=== PATIENT | female | born 1945 | race Caucasian/White ===

== ENCOUNTER 2017-12-07 08:47 | Day surgery (SDC) | payer OTHER ==
[~2017-12-07] VITALS: Ht 157.5 cm; Wt 59.1 kg
[~2017-12-07 08:47] MED LIST: AMLO10TA4 PO; ASPI-496 PO; ATOR40TA PO; CLON0.1T12 PO; FURO80TA77 PO; HYDR-3342 PO; LEVO75TA5 PO; METO-95 PO; NPH,100V SC; SEVE800T7 PO
[2017-12-07] MEDS ORDERED: LACTATED RINGERS 1,000 ML IV SCH (10:02)
[2017-12-07 10:04] VITALS: BP 166/61
[2017-12-07] MEDS ORDERED: BUPIVACAINE/PF 0.5% ONE (10:44)
[2017-12-07] MEDS ORDERED: LIDOCAINE 1%, 50ML ONE (10:44)
[2017-12-07] MEDS ORDERED: EPINEPHRINE 1 MG/ML, 1ML ONE (10:45)
[2017-12-07] MEDS ORDERED: THROMBIN 20,000 UNIT VIAL TP ONE (10:45)
[2017-12-07] MEDS ORDERED: PAPAVERINE 30 MG/ML, 2ML ONE (10:45)
[2017-12-07] MEDS ORDERED: HEPARIN 1,000 UNITS/ML, 10ML ONE (10:45)
[2017-12-07] MEDS ORDERED: SODIUM CHLORIDE 0.9% 1,000 ML IV SCH (10:55)
[2017-12-07] MEDS ORDERED: MIDAZOLAM 1 MG/ML, 2ML ONE (10:57)
[2017-12-07] MEDS ORDERED: FENTANYL PF 250 MCG/5ML ONE (10:57)
[2017-12-07] MEDS ORDERED: PROPOFOL 10 MG/ML, 20ML ONE (10:58)
[2017-12-07] MEDS ORDERED: ROCURONIUM 10 MG/ML,10ML ONE (10:58)
[2017-12-07] MEDS ORDERED: GLYCOPYRROLATE 0.4 MG/2 ML, 2ML ONE (10:59)
[2017-12-07] MEDS ORDERED: NEOSTIGMINE 1 MG/ML, 10ML ONE (10:59)
[2017-12-07] MEDS ORDERED: CEFAZOLIN 1,000 MG ONE ×2 (10:59)
[2017-12-07] MEDS ORDERED: SODIUM CHLORIDE 0.9% PF 10ML ONE (10:59)
[2017-12-07 11:06] LABS: BASOPHILS # (AUTO) 0.03 x10^3/uL (0-0.1); BASOPHILS % (AUTO) 0 % (0-1); EOSINOPHILS # (AUTO) 0.27 x10^3/uL (0-0.4); EOSINOPHILS % (AUTO) 3 % (1-7); LYMPHOCYTES # (AUTO) 1.82 x10^3/uL (1-3.4); LYMPHOCYTES % (AUTO) 20 % (22-44); MD NO; MEAN CORPUSCULAR HEMOGLOBIN 31.9 pg (27.0-34.8); MEAN CORPUSCULAR VOLUME 93.8 fL (80-100); MEAN PLATELET VOLUME 8.8 fL (7.4-10.4); MONOCYTES # (AUTO) 0.86 x10^3/uL (0.2-0.8); MONOCYTES % (AUTO) 10 % (2-9); NEUTROPHILS # (AUTO) 6.14 x10^3/uL (1.8-6.8); NEUTROPHILS % (AUTO) 67 % (42-75); PLATELET COUNT 304 x10^3/uL (130-400); RED CELL DISTRIBUTION WIDTH 14.1 % (9.6-15.2)
[2017-12-07 11:17] LABS: ALANINE AMINOTRANSFERASE 13 U/L (12-78); ALBUMIN 3.3 g/dL (3.4-5.0); ANION GAP 9 mmol/L (5-15); CALCIUM 8.7 mg/dL (8.5-10.1); CHLORIDE 98 mmol/L (98-107); CREATININE 6.28 mg/dL (0.55-1.02)
[2017-12-07 11:19] LABS: ALKALINE PHOSPHATASE 114 U/L (45-117); BILIRUBIN,TOTAL 0.5 mg/dL (0.2-1.0); TOTAL PROTEIN 7.9 g/dL (6.4-8.2)
[2017-12-07] MEDS ORDERED: PHENYLEPHRINE 10 MG/ML ONE (11:27)
[2017-12-07] MEDS ORDERED: PROMETHAZINE 25 MG/ML, 1ML IV PRN (11:30)
[2017-12-07] MEDS ORDERED: hydrALAzine 20 MG/ML, 1ML IV PRN (11:30)
[2017-12-07] MEDS ORDERED: OXYcodone 5 MG/5 ML ORAL.SOL UDC PO PRN (11:30)
[2017-12-07] MEDS ORDERED: ONDANSETRON 2MG/ML, 2ML IVPush PRN (11:30)
[2017-12-07] MEDS ORDERED: FENTANYL PF 100 MCG/2ML IV PRN (11:30)
[2017-12-07] MEDS ORDERED: HYDROmorphone 1 MG/ML, 1ML IV PRN (11:30)
[2017-12-07] MEDS ORDERED: LABETALOL 5MG/ML, 20ML IV PRN (11:30)
[2017-12-07] MEDS ORDERED: ONDANSETRON 2MG/ML, 2ML ONE (12:33)
[2017-12-07] MEDS ORDERED: PROTAMINE SULFATE 10 MG/ML, 5ML ONE (14:18)
[2017-12-07] MEDS ORDERED: VISIPAQUE 270 MG/ML, 50ML BOTTLE ONE (17:00)
== END 2017-12-07 18:06 ==
LOC: OUT 08:47
DX: T82.898A Other specified complication of vascular prosthetic devices, implants and grafts, initial encounter (principal); E11.22 Type 2 diabetes mellitus with diabetic chronic kidney disease; I12.0 Hypertensive chronic kidney disease with stage 5 chronic kidney disease or end stage renal disease; N18.5 Chronic kidney disease, stage 5; E78.5 Hyperlipidemia, unspecified; E03.9 Hypothyroidism, unspecified; D64.9 Anemia, unspecified; F32.9 Major depressive disorder, single episode, unspecified; Y83.8 Other surgical procedures as the cause of abnormal reaction of the patient, or of later complication, without mention of misadventure at the time of the procedure; Y92.89 Other specified places as the place of occurrence of the external cause; Z98.890 Other specified postprocedural states; Z79.82 Long term (current) use of aspirin; Z86.73 Personal history of transient ischemic attack (TIA), and cerebral infarction without residual deficits; Z88.5 Allergy status to narcotic agent
CPT/HCPCS: 36415; 36819; 75710; 80053; 82962; 85025; 93005; C1760; J0690; J1644; J2250; J2370; J2405; J2440; J2704; J2710; J2720; J3010; J3490; Q9966; J0171

== ENCOUNTER → 2018-05-14 | Outpatient (CLI) | payer OTHER | END | disposition home or self-care (01) | LOC: CFH 07:32 | PROVIDERS: ATTEND Nurse Practitioner Family | DX: N85.8 Other specified noninflammatory disorders of uterus (principal); N95.0 Postmenopausal bleeding; N93.9 Abnormal uterine and vaginal bleeding, unspecified | CPT/HCPCS: 76830 ==

== ENCOUNTER 2018-07-30 11:55 | Day surgery (SDC) | payer OTHER ==
[~2018-07-30] VITALS: Ht 157.5 cm; Wt 54.0 kg
[2018-07-30] MEDS ORDERED: LISI40TA PO (13:18)
[2018-07-30] MEDS ORDERED: ROSU10TA PO (13:18)
[2018-07-30] MEDS ORDERED: FURO80TA3 PO (13:18)
[2018-07-30] MEDS ORDERED: GLIP5TAB10 PO (13:18)
[2018-07-30] MEDS ORDERED: METO-99 PO (13:18)
[2018-07-30 13:26] LABS: BASOPHILS # (AUTO) 0.06 x10^3/uL (0-0.1); BASOPHILS % (AUTO) 1 % (0-1); EOSINOPHILS # (AUTO) 0.11 x10^3/uL (0-0.4); EOSINOPHILS % (AUTO) 2 % (1-7); LYMPHOCYTES # (AUTO) 2.14 x10^3/uL (1-3.4); LYMPHOCYTES % (AUTO) 28 % (22-44); MD NO; MEAN CORPUSCULAR HEMOGLOBIN 30.9 pg (27.0-34.8); MEAN CORPUSCULAR VOLUME 93.6 fL (80-100); MEAN PLATELET VOLUME 8.6 fL (7.4-10.4); MONOCYTES # (AUTO) 0.76 x10^3/uL (0.2-0.8); MONOCYTES % (AUTO) 10 % (2-9); NEUTROPHILS # (AUTO) 4.58 x10^3/uL (1.8-6.8); NEUTROPHILS % (AUTO) 60 % (42-75); PLATELET COUNT 402 x10^3/uL (130-400); RED BLOOD COUNT 3.79 x10^6/uL (3.82-5.3); RED CELL DISTRIBUTION WIDTH 14.1 % (9.6-15.2)
[2018-07-30 13:29] VITALS: BP 188/70
[2018-07-30 13:40] LABS: ANION GAP 9 mmol/L (5-15); CALCIUM 9.7 mg/dL (8.5-10.1); CHLORIDE 98 mmol/L (98-107)
[2018-07-30] MEDS ORDERED: LIDOCAINE-MPF 1%, 5ML ONE (14:06)
[2018-07-30] MEDS ORDERED: DEXTROSE 50%, 50ML SYRINGE ONE (14:27)
[2018-07-30] MEDS ORDERED: DEXTROSE 50%, 50ML SYRINGE IVPush ONE ×2 (14:30)
[2018-07-30] MEDS ORDERED: NALOXONE 1 MG/ML, 2ML ONE (14:42)
[2018-07-30] MEDS ORDERED: PROTAMINE SULFATE 10 MG/ML, 25ML ONE (14:42)
[2018-07-30] MEDS ORDERED: FENTANYL PF 100 MCG/2ML ONE (14:42)
[2018-07-30] MEDS ORDERED: MIDAZOLAM 1 MG/ML, 5ML ONE (14:42)
[2018-07-30] MEDS ORDERED: HEPARIN 1,000 UNITS/ML, 10ML ONE (14:42)
[2018-07-30] MEDS ORDERED: FLUMAZENIL 0.1 MG/1 ML, 5ML ONE (14:42)
[2018-07-30] MEDS ORDERED: VISIPAQUE 270 MG/ML, 50ML BOTTLE ONE (16:20)
[2018-07-30] MEDS ORDERED: AMLODIPINE 5 MG TABLET PO ONE (17:30)
[2018-07-30] MEDS ORDERED: METOPROLOL TARTRATE 100 MG TABLET PO ONE (17:30)
[2018-07-30] MEDS ORDERED: LISINOPRIL 20 MG TABLET PO ONE (17:30)
== END 2018-07-30 18:40 | disposition home or self-care (01) ==
LOC: RAD 11:55
DX: T82.858A Stenosis of other vascular prosthetic devices, implants and grafts, initial encounter (principal); Y83.8 Other surgical procedures as the cause of abnormal reaction of the patient, or of later complication, without mention of misadventure at the time of the procedure; Y92.89 Other specified places as the place of occurrence of the external cause; E11.22 Type 2 diabetes mellitus with diabetic chronic kidney disease; I12.9 Hypertensive chronic kidney disease with stage 1 through stage 4 chronic kidney disease, or unspecified chronic kidney disease; N18.4 Chronic kidney disease, stage 4 (severe); E78.5 Hyperlipidemia, unspecified; F32.9 Major depressive disorder, single episode, unspecified; E03.9 Hypothyroidism, unspecified; D64.9 Anemia, unspecified; Z86.73 Personal history of transient ischemic attack (TIA), and cerebral infarction without residual deficits; Z98.890 Other specified postprocedural states; Z79.82 Long term (current) use of aspirin; Z88.5 Allergy status to narcotic agent
CPT/HCPCS: 36415; 36902; 75710; 76937; 80048; 82962; 85025; 99156; 99157; C1725; C1751; C1769; C1894; J2250; J3010; Q9966; J1644; J2720; J2310

== ENCOUNTER → 2019-01-21 | Outpatient (CLI) | payer OTHER ==
[~2019-01-21] MED LIST changes: +FURO80TA3 PO; +GLIP5TAB10 PO; +LISI40TA PO; +METO-99 PO; +ROSU10TA2 PO
== END | disposition home or self-care (01) ==
LOC: STAR 08:07
PROVIDERS: ATTEND Surgery
DX: Z01.812 Encounter for preprocedural laboratory examination (principal); N18.6 End stage renal disease; I70.213 Atherosclerosis of native arteries of extremities with intermittent claudication, bilateral legs
CPT/HCPCS: 93005

== ENCOUNTER 2019-03-12 19:24 | Inpatient (IN) | payer OTHER ==
[~2019-03-12] VITALS: Ht 157.5 cm; Wt 58.0 kg
--- NOTE | 2019-03-12 19:58 | NUR ---
THIS IS A 73 Y/O FEMALE THAT ARRIVES TO ED WITH INCREASED JORDAN AND HAS STARTED TO HAVE MORE FALLS AT HOME OFTEN. PT REPORTS SHE DOES NOT FEEL WELL AND ITS HARD FOR HER TO GET AROUND. PT HAS NO NEURO DEFICETES AND FSITUALA APPEARS TO BE WITHOUT ISSUE. RIGHT ARM IS SWOLLEN. PT CONNECTED TO ALL MONITORS AND CALL LIGHT IN REACH. AWAITING FURTHER ORDERS.
[2019-03-12 20:10] LABS: BASOPHILS # (AUTO) 0.02 x10^3/uL (0-0.1); BASOPHILS % (AUTO) 0 % (0-1); EOSINOPHILS % (AUTO) 3 % (1-7); LYMPHOCYTES # (AUTO) 1.29 x10^3/uL (1-3.4); LYMPHOCYTES % (AUTO) 20 % (22-44); MD NO; MEAN CORPUSCULAR HEMOGLOBIN 31.8 pg (27.0-34.8); MEAN CORPUSCULAR HGB CONC 33.3 g/dL (32.4-35.8); MEAN CORPUSCULAR VOLUME 95.7 fL (80-100); MEAN PLATELET VOLUME 8.6 fL (7.4-10.4); MONOCYTES % (AUTO) 11 % (2-9); NEUTROPHILS # (AUTO) 4.28 x10^3/uL (1.8-6.8); NEUTROPHILS % (AUTO) 66 % (42-75); PLATELET COUNT 320 x10^3/uL (130-400); RED BLOOD COUNT 3.51 x10^6/uL (3.82-5.3); RED CELL DISTRIBUTION WIDTH 14.5 % (9.6-15.2)
[2019-03-12 20:21] LABS: ANION GAP 8 mmol/L (5-15); CALCIUM 9.2 mg/dL (8.5-10.1); CHLORIDE 97 mmol/L (98-107); CREATININE 2.91 mg/dL (0.55-1.02)
--- NOTE | 2019-03-12 20:28 | NUR ---
MD INFORMED OF INCREASED BP, MD AT THIS TIME WOULD LIKE REPEAT DOSE OF CLONIDINE.
[2019-03-12 20:30] LABS: FREE T4 (FREE THYROXINE) 1.12 ng/dL (0.76-1.46)
[2019-03-12 21:03] LABS: TROPONIN I 0.022 ng/mL (0.000-0.045)
[2019-03-12] MEDS ORDERED: LABETALOL 5 MG/ML SYRINGE IVPush ONE (21:30)
[2019-03-12] MEDS ORDERED: SODIUM CHLORIDE FLUSH 10ML SYR IVF ONE (21:30)
--- NOTE | 2019-03-12 22:07 | NUR ---
SPOKE WITH MD REGARDING HR IN 60-70 RANGE AND IF OKAY TO PROCEEDE WITH BETA SULEMAN IV INSTEAD OF DIFFRENT MEDICATION. MD WOULD LIKE BETA SULEMAN AT THIS TIME.
[2019-03-12] MEDS ORDERED: BISACODYL 10 MG SUPP PR PRN (22:30)
[2019-03-12] MEDS ORDERED: ONDANSETRON ODT 4 MG PO PRN (22:30)
[2019-03-12] MEDS ORDERED: POLYETHYLENE GLYCOL 17 GM PACKET PO PRN (22:30)
[2019-03-12 22:45] VITALS: BP 198/75
[2019-03-12 23:07] LABS: HEMOGLOBIN A1C 8.7 % (4.2-6.3)
[2019-03-12] MEDS ORDERED: hydrALAzine 20 MG/ML, 1ML IV ONE (23:45)
[2019-03-12 23:52] VITALS: BP 193/71
[2019-03-12] MEDS: SEVELAMER CARBONATE 800MG TAB PO SCH (23:54)
[2019-03-12] MEDS: FUROSEMIDE 80 MG TABLET PO SCH (23:54)
[2019-03-12] MEDS: SODIUM CHLORIDE FLUSH 10ML SYR IVF SCH (23:54)
[2019-03-12] MEDS: ATORVASTATIN 40 MG TABLET PO SCH (23:54)
[2019-03-13] MEDS: INSULIN NPH HUMAN 100 UNIT/ML, 3ML VIAL SQ-INSULIN SCH ×2 (01:03→08:40)
[2019-03-13 02:36] VITALS: BP 145/70
[2019-03-13 05:46] LABS: BASOPHILS # (AUTO) 0.02 x10^3/uL (0-0.1); BASOPHILS % (AUTO) 0 % (0-1); EOSINOPHILS # (AUTO) 0.24 x10^3/uL (0-0.4); EOSINOPHILS % (AUTO) 4 % (1-7); LYMPHOCYTES # (AUTO) 1.35 x10^3/uL (1-3.4); LYMPHOCYTES % (AUTO) 23 % (22-44); MD NO; MEAN CORPUSCULAR HEMOGLOBIN 30.9 pg (27.0-34.8); MEAN CORPUSCULAR HGB CONC 32.2 g/dL (32.4-35.8); MEAN CORPUSCULAR VOLUME 96.2 fL (80-100); MEAN PLATELET VOLUME 8.7 fL (7.4-10.4); MONOCYTES # (AUTO) 0.57 x10^3/uL (0.2-0.8); MONOCYTES % (AUTO) 10 % (2-9); NEUTROPHILS # (AUTO) 3.81 x10^3/uL (1.8-6.8); NEUTROPHILS % (AUTO) 64 % (42-75); PLATELET COUNT 291 x10^3/uL (130-400); RED BLOOD COUNT 3.31 x10^6/uL (3.82-5.3); RED CELL DISTRIBUTION WIDTH 14.5 % (9.6-15.2)
[2019-03-13 05:57] LABS: ALBUMIN 3.1 g/dL (3.4-5.0); ANION GAP 9 mmol/L (5-15); CALCIUM 8.6 mg/dL (8.5-10.1); CHLORIDE 96 mmol/L (98-107)
[2019-03-13 05:59] LABS: ALANINE AMINOTRANSFERASE 19 U/L (12-78); ALKALINE PHOSPHATASE 125 U/L (45-117); BILIRUBIN,TOTAL 0.7 mg/dL (0.2-1.0)
[2019-03-13 08:38] VITALS: BP 187/75
[2019-03-13] MEDS: SEVELAMER CARBONATE 800MG TAB PO SCH ×3 (08:39→21:19)
[2019-03-13] MEDS: AMLODIPINE 10 MG TAB PO SCH (08:39)
[2019-03-13] MEDS: METOPROLOL TARTRATE 100 MG TABLET PO SCH (08:40)
[2019-03-13] MEDS: SENNA/DOCUSATE TABLET PO SCH (08:40)
[2019-03-13] MEDS: LISINOPRIL 40 MG TABLET PO SCH ×2 (08:40→21:20)
[2019-03-13] MEDS: FUROSEMIDE 80 MG TABLET PO SCH ×2 (08:40→21:21)
[2019-03-13] MEDS: SODIUM CHLORIDE FLUSH 10ML SYR IVF SCH ×2 (08:41→21:21)
[2019-03-13 08:50] LABS: TROPONIN I 0.044 ng/mL (0.000-0.045)
[2019-03-13] MEDS ORDERED: LEVOTHYROXINE 75 MCG TABLET PO SCH (09:00)
[2019-03-13 10:18] VITALS: BP 137/65
[2019-03-13] MEDS: ACETAMINOPHEN 325 MG TABLET PO PRN (11:21)
[2019-03-13] MEDS: INSULIN LISPRO 100 UNITS/ML, PEN SQ-INSULIN SCH ×3 (11:33→21:23)
[2019-03-13] MEDS ORDERED: HYDR100T25 PO (12:23)
[2019-03-13 13:20] VITALS: BP 134/64
[2019-03-13 20:48] VITALS: BP 139/76
[2019-03-13] MEDS: ATORVASTATIN 40 MG TABLET PO SCH (21:20)
[2019-03-14] VITALS (9 sets, daily range): BP systolic 164–203; BP diastolic 10–81
[2019-03-14 07:41] LABS: ALANINE AMINOTRANSFERASE 17 U/L (12-78); ALBUMIN 3.2 g/dL (3.4-5.0); ANION GAP 11 mmol/L (5-15); CALCIUM 9.1 mg/dL (8.5-10.1); CHLORIDE 97 mmol/L (98-107); CREATININE 5.75 mg/dL (0.55-1.02)
[2019-03-14 07:43] LABS: ALKALINE PHOSPHATASE 112 U/L (45-117); BILIRUBIN,TOTAL 0.5 mg/dL (0.2-1.0); TOTAL PROTEIN 7.3 g/dL (6.4-8.2)
[2019-03-14] MEDS: ACETAMINOPHEN 325 MG TABLET PO PRN ×2 (07:48→21:59)
[2019-03-14] MEDS: INSULIN LISPRO 100 UNITS/ML, PEN SQ-INSULIN SCH ×4 (07:53→22:11)
[2019-03-14] MEDS: SEVELAMER CARBONATE 800MG TAB PO SCH ×3 (09:45→16:27)
[2019-03-14] MEDS ORDERED: ASPI-515 PO (09:55)
[2019-03-14] MEDS ORDERED: INSU100I11 SQ-INSULIN (09:55)
[2019-03-14] MEDS ORDERED: SEVE800T8 PO (09:55)
[2019-03-14] MEDS: SODIUM CHLORIDE FLUSH 10ML SYR IVF SCH ×2 (12:27→21:56)
[2019-03-14] MEDS: AMLODIPINE 10 MG TAB PO SCH (12:28)
[2019-03-14] MEDS: ASPIRIN 81 MG TABLET CHEW PO SCH (12:28)
[2019-03-14] MEDS: LEVOTHYROXINE 75 MCG TABLET PO SCH (12:28)
[2019-03-14] MEDS: LISINOPRIL 40 MG TABLET PO SCH (12:28)
[2019-03-14] MEDS: METOPROLOL TARTRATE 100 MG TABLET PO SCH (12:29)
[2019-03-14] MEDS: SENNA/DOCUSATE TABLET PO SCH (12:29)
[2019-03-14] MEDS: FUROSEMIDE 80 MG TABLET PO SCH ×2 (12:30→21:57)
[2019-03-14] MEDS ORDERED: LABETALOL 5MG/ML, 20ML IVPush PRN (14:00)
[2019-03-14] MEDS ORDERED: LABETALOL 5 MG/ML SYRINGE IVPush PRN (14:37)
[2019-03-14] MEDS: ATORVASTATIN 40 MG TABLET PO SCH (21:56)
[2019-03-15 00:33] VITALS: BP 159/92
[2019-03-15 05:22] VITALS: BP 145/65
[2019-03-15] MEDS: LEVOTHYROXINE 75 MCG TABLET PO SCH (05:24)
[2019-03-15 05:39] LABS: CALCIUM 8.6 mg/dL (8.5-10.1); CHLORIDE 101 mmol/L (98-107)
[2019-03-15 05:47] LABS: ALANINE AMINOTRANSFERASE 17 U/L (12-78); ALKALINE PHOSPHATASE 109 U/L (45-117); ANION GAP 7 mmol/L (5-15); BILIRUBIN,TOTAL 0.4 mg/dL (0.2-1.0); CREATININE 4.38 mg/dL (0.55-1.02); TOTAL PROTEIN 6.9 g/dL (6.4-8.2)
[2019-03-15] MEDS ORDERED: DEXTROSE 4 GM TAB.CHEW PO PRN (07:30)
[2019-03-15] MEDS ORDERED: GLUCAGON 1 MG IM PRN (07:30)
[2019-03-15] MEDS ORDERED: DEXTROSE 50%, 50ML SYRINGE IVPush PRN (07:30)
[2019-03-15 07:38] VITALS: BP 169/61
[2019-03-15] MEDS ORDERED: LISI-170 PO (08:05)
[2019-03-15] MEDS: AMLODIPINE 10 MG TAB PO SCH (08:41)
[2019-03-15] MEDS: SODIUM CHLORIDE FLUSH 10ML SYR IVF SCH ×3 (08:41→09:00)
[2019-03-15] MEDS: METOPROLOL TARTRATE 100 MG TABLET PO SCH (08:41)
[2019-03-15] MEDS: INSULIN LISPRO 100 UNITS/ML, PEN SQ-INSULIN SCH (08:41)
[2019-03-15] MEDS: ASPIRIN 81 MG TABLET CHEW PO SCH (08:41)
[2019-03-15] MEDS: FUROSEMIDE 80 MG TABLET PO SCH (08:41)
[2019-03-15] MEDS: SEVELAMER CARBONATE 800MG TAB PO SCH (08:41)
[2019-03-15] MEDS: SENNA/DOCUSATE TABLET PO SCH (08:42)
== END 2019-03-15 10:25 | disposition home or self-care (01) | DRG 304 ==
LOC: ED 20:34 → EDIP 21:49 → 5SO 22:52 → 4EST 03-14 22:54 → DCLOUNGE 03-15 10:05
PROVIDERS: ADMIT Family Medicine; ATTEND Family Medicine
DX: I16.0 Hypertensive urgency (principal); N18.6 End stage renal disease; E44.0 Moderate protein-calorie malnutrition; E87.3 Alkalosis; I87.1 Compression of vein; I69.354 Hemiplegia and hemiparesis following cerebral infarction affecting left non-dominant side; I12.0 Hypertensive chronic kidney disease with stage 5 chronic kidney disease or end stage renal disease; D63.1 Anemia in chronic kidney disease; E03.9 Hypothyroidism, unspecified; E11.22 Type 2 diabetes mellitus with diabetic chronic kidney disease; E11.41 Type 2 diabetes mellitus with diabetic mononeuropathy; E11.65 Type 2 diabetes mellitus with hyperglycemia; Z68.23 Body mass index [BMI] 23.0-23.9, adult; E78.5 Hyperlipidemia, unspecified; Z88.6 Allergy status to analgesic agent; H91.90 Unspecified hearing loss, unspecified ear; N25.0 Renal osteodystrophy; R62.7 Adult failure to thrive; W18.39XA Other fall on same level, initial encounter; Y93.89 Activity, other specified; Y92.89 Other specified places as the place of occurrence of the external cause; Y99.8 Other external cause status; G57.90 Unspecified mononeuropathy of unspecified lower limb; Z82.49 Family history of ischemic heart disease and other diseases of the circulatory system; Z83.3 Family history of diabetes mellitus; Z91.14 Patient's other noncompliance with medication regimen; Z99.2 Dependence on renal dialysis
CPT/HCPCS: 36415; 70450; 71045; 80048; 80053; 82306; 82962; 83036; 83970; 84100; 84439; 84443; 84484; 85025; 86705; 86706; 87340; 93005; 96374; G0378; J1815; J0360

== ENCOUNTER 2019-03-17 16:33 | Inpatient (IN) | payer OTHER ==
[~2019-03-17] VITALS: Ht 157.5 cm; Wt 63.0 kg
[~2019-03-17 16:33] MED LIST changes: +ASPI-515 PO; +HYDR100T25 PO; +INSU100I11 SQ-INSULIN; +LISI-170 PO; +SEVE800T8 PO
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
--- NOTE | 2019-03-17 16:53 | NUR ---
[facility] UPON ASSESSMENT BY ERMD PT STRIGHT TO CT.
[2019-03-17] MEDS ORDERED: LISI40TA PO (17:18)
[2019-03-17 17:29] LABS: BASOPHILS # (AUTO) 0.05 x10^3/uL (0-0.1); BASOPHILS % (AUTO) 1 % (0-1); EOSINOPHILS # (AUTO) 0.22 x10^3/uL (0-0.4); EOSINOPHILS % (AUTO) 3 % (1-7); LYMPHOCYTES # (AUTO) 1.12 x10^3/uL (1-3.4); LYMPHOCYTES % (AUTO) 16 % (22-44); MD NO; MEAN CORPUSCULAR HEMOGLOBIN 31.4 pg (27.0-34.8); MEAN CORPUSCULAR HGB CONC 32.8 g/dL (32.4-35.8); MEAN CORPUSCULAR VOLUME 95.7 fL (80-100); MONOCYTES % (AUTO) 9 % (2-9); NEUTROPHILS % (AUTO) 72 % (42-75); PLATELET COUNT 287 x10^3/uL (130-400); RED BLOOD COUNT 3.06 x10^6/uL (3.82-5.3); RED CELL DISTRIBUTION WIDTH 15.1 % (9.6-15.2)
[2019-03-17 17:39] LABS: INTERNATIONAL NORMALIZED RATIO 0.96 (0.93-1.1); PROTHROMBIN TIME 10.1 Seconds (9.6-11.5)
[2019-03-17 17:40] LABS: ALANINE AMINOTRANSFERASE 16 U/L (12-78); ALBUMIN 3.2 g/dL (3.4-5.0); ANION GAP 10 mmol/L (5-15); CALCIUM 8.5 mg/dL (8.5-10.1); CHLORIDE 97 mmol/L (98-107)
--- NOTE | 2019-03-17 17:42 | NUR ---
PICC LINE PLACED
[2019-03-17 17:43] LABS: ALKALINE PHOSPHATASE 121 U/L (45-117); BILIRUBIN,TOTAL 0.4 mg/dL (0.2-1.0); CREATININE 4.38 mg/dL (0.55-1.02); TOTAL PROTEIN 7.1 g/dL (6.4-8.2)
--- NOTE | 2019-03-17 17:45 | NUR ---
TELE NEUROLOGIST CONSULT OCCURING
[2019-03-17] MEDS ORDERED: ALTEPLASE 1 MG/ML ONE (17:56)
[2019-03-17] MEDS ORDERED: ALTEPLASE 5 MG in SYRINGE 1 EA IVPush ONE (18:00)
[2019-03-17] MEDS ORDERED: ALTEPLASE IV ONE (18:00)
--- NOTE | 2019-03-17 18:20 | NUR ---
MT TO CONTACT TELE NEURO REGARDING POSSIBLE TPA. ERMD WOULD LIKE NEUROLOGIST TO SPEAK WITH FAMILY REGARDING TPA.
--- NOTE | 2019-03-17 18:42 | NUR ---
MT CURRENTLY ONHOLD ATTEMPTING TO CONTACT NEUROLOGIST
--- NOTE | 2019-03-17 19:05 | NUR ---
THROUGHT MADE AWARE OF TELE NEURO DOCTOR WANTING PT TO BE TRANSFERED TO A HOSPITAL WITH CLOT RETRIVAL. ERMD AWARE.
--- NOTE | 2019-03-17 19:05 | NUR ---
NARDA SPOKE WITH TELE NEURO MD REGARDING CONCERNS OF STARTING TPA. TELE NEUROLOGIST TO SPEAK WITH FAMILY.
--- NOTE | 2019-03-17 19:15 | NUR ---
FAMILY WITH IN DEPTH CONVERSTAION WITH TELE NEURO DOCTOR. DISCUSSED RISK AND BENEFITS WITH FAMILY. FAMILY AGREES WITH GIVING TPA. TPA DOSEAGE VERIFIED WITH DEION SLOAN. TPA STARTED.
--- NOTE | 2019-03-17 19:25 | NUR ---
ERMD AWARE ABOUT PT'S BP. NO ORDERS AT THIS TIME.
--- NOTE | 2019-03-17 19:32 | NUR ---
PT TO CT FOR CTA. DR. HAYDEN AT [facility] TO REVIEW CTA PRIOR TO ACCEPTING.
--- NOTE | 2019-03-17 20:10 | NUR ---
ERMD AT BEDSIDE TO DISCUSS UPDATED POC. PT TO BE ADMITED HERE.
[2019-03-17] MEDS ORDERED: SODIUM CHLORIDE FLUSH 10ML SYR IVF PRN (20:30)
[2019-03-17] MEDS ORDERED: hydrALAzine 20 MG/ML, 1ML IV ONE (20:30)
--- NOTE | 2019-03-17 20:41 | NUR ---
HYDRALIZINE HELD AT THIS TIME BP HAS DECREASED.
[2019-03-17] MEDS ORDERED: ONDANSETRON 2MG/ML, 2ML IVPush PRN (21:00)
[2019-03-17] MEDS ORDERED: GLUCAGON 1 MG IM PRN (21:00)
[2019-03-17] MEDS ORDERED: DEXTROSE 4 GM TAB.CHEW PO PRN (21:00)
[2019-03-17] MEDS ORDERED: DEXTROSE 50%, 50ML SYRINGE IVPush PRN (21:00)
--- NOTE | 2019-03-17 21:20 | NUR ---
REPORT TO DEION AREVALO.
[2019-03-17] MEDS ORDERED: LABETALOL 5MG/ML, 20ML IV PRN (21:30)
--- NOTE | 2019-03-17 21:30 | NUR ---
PT TO ICU-3. PLEASE SEE TPA FLOW SHEET FOR VITALS POST STARTING TPA.
[2019-03-17 22:13] VITALS: BP 170/50
[2019-03-17] MEDS: SODIUM CHLORIDE FLUSH 10ML SYR IVF SCH (23:34)
[2019-03-17] MEDS: INSULIN LISPRO 100 UNITS/ML, PEN SQ-INSULIN SCH (23:34)
[2019-03-18 04:00] VITALS: BP 139/44
[2019-03-18] MEDS: INSULIN LISPRO 100 UNITS/ML, PEN SQ-INSULIN SCH ×4 (07:50→21:00)
[2019-03-18] MEDS: SODIUM CHLORIDE FLUSH 10ML SYR IVF SCH ×2 (09:00→21:00)
[2019-03-18] MEDS: D5%-0.9% NACL 1,000 ML IV SCH (09:30)
[2019-03-18] MEDS: ENALAPRILAT 1.25 MG/ML, 2ML IV PRN (13:49)
--- NOTE | 2019-03-18 15:23 | NUR ---
NPO -aggressive oral care Addendum: 03/18/19 at [address] Amended: Links added.
[2019-03-18 18:41] LABS: CHOL/HDL RATIO 1.9; LDL/HDL RATIO 0.6 (0.5-3.0)
[2019-03-18 23:21] VITALS: BP 168/80
[2019-03-19] VITALS (7 sets, daily range): BP systolic 169–200; BP diastolic 81–99
[2019-03-19] MEDS: INSULIN LISPRO 100 UNITS/ML, PEN SQ-INSULIN SCH ×4 (03:16→21:47)
[2019-03-19] MEDS: D5%-0.9% NACL 1,000 ML IV SCH (05:58)
[2019-03-19] MEDS ORDERED: ENALAPRILAT 1.25 MG/ML, 1ML ONE (08:18)
[2019-03-19] MEDS: ENALAPRILAT 1.25 MG/ML, 2ML IV PRN ×2 (08:24→21:54)
[2019-03-19] MEDS: SODIUM CHLORIDE FLUSH 10ML SYR IVF SCH ×2 (09:00→21:47)
[2019-03-19] MEDS: ASPIRIN 300 MG SUPP PR SCH (11:40)
[2019-03-20] VITALS (8 sets, daily range): BP systolic 168–199; BP diastolic 68–93
[2019-03-20] MEDS: D5%-0.9% NACL 1,000 ML IV SCH (03:15)
[2019-03-20] MEDS: INSULIN LISPRO 100 UNITS/ML, PEN SQ-INSULIN SCH ×4 (03:22→21:33)
[2019-03-20 06:16] LABS: ANION GAP 11 mmol/L (5-15); CALCIUM 9.3 mg/dL (8.5-10.1); CHLORIDE 102 mmol/L (98-107); CREATININE 5.06 mg/dL (0.55-1.02)
[2019-03-20 06:44] LABS: BASOPHILS # (AUTO) 0.03 x10^3/uL (0-0.1); BASOPHILS % (AUTO) 0 % (0-1); EOSINOPHILS # (AUTO) 0.03 x10^3/uL (0-0.4); EOSINOPHILS % (AUTO) 0 % (1-7); LYMPHOCYTES # (AUTO) 1.12 x10^3/uL (1-3.4); LYMPHOCYTES % (AUTO) 12 % (22-44); MD NO; MEAN CORPUSCULAR HEMOGLOBIN 31.1 pg (27.0-34.8); MEAN CORPUSCULAR HGB CONC 32.6 g/dL (32.4-35.8); MEAN CORPUSCULAR VOLUME 95.2 fL (80-100); MEAN PLATELET VOLUME 8.8 fL (7.4-10.4); MONOCYTES % (AUTO) 11 % (2-9); NEUTROPHILS % (AUTO) 77 % (42-75); PLATELET COUNT 299 x10^3/uL (130-400); RED CELL DISTRIBUTION WIDTH 14.8 % (9.6-15.2)
[2019-03-20] MEDS: SODIUM CHLORIDE FLUSH 10ML SYR IVF SCH ×2 (09:00→21:00)
[2019-03-20] MEDS: ASPIRIN 300 MG SUPP PR SCH (09:49)
[2019-03-20] MEDS: METOPROLOL 1 MG/ML, 5ML IVPush SCH ×2 (13:11→19:49)
[2019-03-20] MEDS: LISINOPRIL 40 MG TABLET NG SCH (15:59)
[2019-03-20] MEDS ORDERED: LISINOPRIL 40 MG TABLET NG SCH (21:00)
[2019-03-20] MEDS: ATORVASTATIN 80 MG TABLET PO/NG SCH (21:27)
[2019-03-21 01:26] VITALS: BP 154/83
[2019-03-21] MEDS: METOPROLOL 1 MG/ML, 5ML IVPush SCH ×3 (02:05→14:54)
[2019-03-21] MEDS: INSULIN LISPRO 100 UNITS/ML, PEN SQ-INSULIN SCH ×4 (02:05→21:57)
[2019-03-21 04:36] VITALS: BP 165/77
[2019-03-21 09:15] VITALS: BP 192/83
[2019-03-21 14:35] VITALS: BP 186/85
[2019-03-21] MEDS: CLOPIDOGREL 75 MG TABLET PO/NG SCH (14:54)
[2019-03-21] MEDS: LISINOPRIL 40 MG TABLET NG SCH (14:55)
[2019-03-21] MEDS: AMLODIPINE 10 MG TAB PO/NG SCH (14:55)
[2019-03-21] MEDS: LEVOTHYROXINE 75 MCG TABLET PO/NG SCH (14:56)
[2019-03-21] MEDS: SODIUM CHLORIDE FLUSH 10ML SYR IVF SCH ×2 (14:57→21:00)
[2019-03-21] MEDS: ASPIRIN 300 MG SUPP PR SCH (15:00)
[2019-03-21] MEDS: METOPROLOL TARTRATE 25 MG TABLET PO/NG SCH (18:35)
[2019-03-21 21:00] VITALS: BP 146/65
[2019-03-21] MEDS: ATORVASTATIN 80 MG TABLET PO/NG SCH (21:55)
[2019-03-21] MEDS: INSULIN GLARGINE 100 UNITS/ML, PEN SQ-INSULIN SCH (22:32)
[2019-03-22] VITALS (8 sets, daily range): BP systolic 115–180; BP diastolic 62–79
[2019-03-22] MEDS: INSULIN LISPRO 100 UNITS/ML, PEN SQ-INSULIN SCH ×4 (03:00→21:00)
[2019-03-22] MEDS: METOPROLOL TARTRATE 25 MG TABLET PO/NG SCH ×3 (03:38→19:00)
[2019-03-22 04:20] LABS: BASOPHILS # (AUTO) 0.01 x10^3/uL (0-0.1); BASOPHILS % (AUTO) 0 % (0-1); EOSINOPHILS % (AUTO) 2 % (1-7); LYMPHOCYTES % (AUTO) 11 % (22-44); MD NO; MEAN CORPUSCULAR HEMOGLOBIN 30.9 pg (27.0-34.8); MEAN CORPUSCULAR HGB CONC 31.6 g/dL (32.4-35.8); MEAN CORPUSCULAR VOLUME 97.8 fL (80-100); MONOCYTES # (AUTO) 0.67 x10^3/uL (0.2-0.8); MONOCYTES % (AUTO) 8 % (2-9); NEUTROPHILS # (AUTO) 6.63 x10^3/uL (1.8-6.8); NEUTROPHILS % (AUTO) 79 % (42-75); PLATELET COUNT 279 x10^3/uL (130-400); RED BLOOD COUNT 2.56 x10^6/uL (3.82-5.3); RED CELL DISTRIBUTION WIDTH 14.8 % (9.6-15.2)
[2019-03-22 04:32] LABS: CHLORIDE 101 mmol/L (98-107)
[2019-03-22 04:39] LABS: ALANINE AMINOTRANSFERASE 13 U/L (12-78); ALBUMIN 2.3 g/dL (3.4-5.0); ALKALINE PHOSPHATASE 120 U/L (45-117); ANION GAP 6 mmol/L (5-15); BILIRUBIN,TOTAL 0.4 mg/dL (0.2-1.0); CALCIUM 8.1 mg/dL (8.5-10.1); CREATININE 4.35 mg/dL (0.55-1.02); TOTAL PROTEIN 5.8 g/dL (6.4-8.2)
[2019-03-22] MEDS: SODIUM CHLORIDE FLUSH 10ML SYR IVF SCH ×2 (09:00→21:39)
[2019-03-22] MEDS: LISINOPRIL 40 MG TABLET NG SCH (09:34)
[2019-03-22] MEDS: AMLODIPINE 10 MG TAB PO/NG SCH (09:34)
[2019-03-22] MEDS: LEVOTHYROXINE 75 MCG TABLET PO/NG SCH (09:37)
[2019-03-22] MEDS: CLOPIDOGREL 75 MG TABLET PO/NG SCH (09:37)
[2019-03-22] MEDS: INSULIN GLARGINE 100 UNITS/ML, PEN SQ-INSULIN SCH ×2 (09:47→21:00)
--- NOTE | 2019-03-22 14:24 | NUR ---
REC: Pureed/NTL; swallow precautions posted in room. Addendum: 03/22/19 at 1425 by Frannie VILLAGRAN Amended: Links added.
[2019-03-22] MEDS: METOPROLOL TARTRATE 50 MG TABLET PO/NG SCH (21:00)
[2019-03-22] MEDS: ATORVASTATIN 80 MG TABLET PO/NG SCH (21:38)
[2019-03-23 00:30] VITALS: BP 144/64
[2019-03-23] MEDS: INSULIN LISPRO 100 UNITS/ML, PEN SQ-INSULIN SCH ×4 (03:47→22:15)
[2019-03-23 04:00] VITALS: BP 141/56
[2019-03-23 07:55] VITALS: BP 188/72
[2019-03-23] MEDS: CLOPIDOGREL 75 MG TABLET PO/NG SCH (08:27)
[2019-03-23] MEDS: METOPROLOL TARTRATE 50 MG TABLET PO/NG SCH ×2 (08:27→22:14)
[2019-03-23] MEDS: AMLODIPINE 10 MG TAB PO/NG SCH (08:28)
[2019-03-23] MEDS: LISINOPRIL 40 MG TABLET NG SCH (08:28)
[2019-03-23] MEDS: SODIUM CHLORIDE FLUSH 10ML SYR IVF SCH ×2 (08:28→22:13)
[2019-03-23] MEDS: LEVOTHYROXINE 75 MCG TABLET PO/NG SCH (08:28)
[2019-03-23] MEDS: INSULIN GLARGINE 100 UNITS/ML, PEN SQ-INSULIN SCH ×2 (08:30→22:15)
[2019-03-23 10:23] VITALS: BP 147/73
[2019-03-23] MEDS ORDERED: HYDROCHLOROTHIAZIDE 25 MG TABLET ONE (10:32)
[2019-03-23] MEDS: HYDROCHLOROTHIAZIDE 25 MG TABLET NG SCH (10:36)
[2019-03-23 14:09] VITALS: BP 162/65
[2019-03-23 21:41] VITALS: BP 155/56
[2019-03-23] MEDS: ATORVASTATIN 80 MG TABLET PO/NG SCH (22:14)
[2019-03-24] VITALS (7 sets, daily range): BP systolic 135–181; BP diastolic 60–73
[2019-03-24] MEDS: INSULIN LISPRO 100 UNITS/ML, PEN SQ-INSULIN SCH ×4 (03:18→21:14)
[2019-03-24 06:36] LABS: BASOPHILS # (AUTO) 0.05 x10^3/uL (0-0.1); BASOPHILS % (AUTO) 1 % (0-1); EOSINOPHILS # (AUTO) 0.32 x10^3/uL (0-0.4); EOSINOPHILS % (AUTO) 5 % (1-7); LYMPHOCYTES # (AUTO) 1.02 x10^3/uL (1-3.4); LYMPHOCYTES % (AUTO) 15 % (22-44); MD NO; MEAN CORPUSCULAR HGB CONC 33.1 g/dL (32.4-35.8); MEAN CORPUSCULAR VOLUME 96.6 fL (80-100); MEAN PLATELET VOLUME 9.2 fL (7.4-10.4); MONOCYTES # (AUTO) 0.58 x10^3/uL (0.2-0.8); MONOCYTES % (AUTO) 9 % (2-9); NEUTROPHILS # (AUTO) 4.77 x10^3/uL (1.8-6.8); NEUTROPHILS % (AUTO) 71 % (42-75); PLATELET COUNT 308 x10^3/uL (130-400); RED BLOOD COUNT 2.62 x10^6/uL (3.82-5.3); RED CELL DISTRIBUTION WIDTH 14.7 % (9.6-15.2)
[2019-03-24 06:47] LABS: ANION GAP 9 mmol/L (5-15); CALCIUM 8.4 mg/dL (8.5-10.1); CHLORIDE 97 mmol/L (98-107)
[2019-03-24 06:48] LABS: CREATININE 7.17 mg/dL (0.55-1.02)
[2019-03-24] MEDS: HYDROCHLOROTHIAZIDE 25 MG TABLET NG SCH (09:00)
[2019-03-24] MEDS: CLOPIDOGREL 75 MG TABLET PO/NG SCH (09:00)
[2019-03-24] MEDS: SODIUM CHLORIDE FLUSH 10ML SYR IVF SCH ×2 (09:00→21:15)
[2019-03-24] MEDS: INSULIN GLARGINE 100 UNITS/ML, PEN SQ-INSULIN SCH ×2 (09:59→21:15)
[2019-03-24] MEDS: LEVOTHYROXINE 75 MCG TABLET PO/NG SCH (09:59)
[2019-03-24] MEDS: AMLODIPINE 10 MG TAB PO/NG SCH (11:56)
[2019-03-24] MEDS: LISINOPRIL 40 MG TABLET NG SCH (11:56)
[2019-03-24] MEDS: METOPROLOL TARTRATE 50 MG TABLET PO/NG SCH ×2 (11:58→21:14)
[2019-03-24] MEDS: ATORVASTATIN 80 MG TABLET PO/NG SCH (21:13)
[2019-03-25] MEDS: INSULIN LISPRO 100 UNITS/ML, PEN SQ-INSULIN SCH ×4 (03:05→21:38)
[2019-03-25 04:10] VITALS: BP 146/70
[2019-03-25 07:44] LABS: BASOPHILS % (AUTO) 0 % (0-1); EOSINOPHILS # (AUTO) 0.27 x10^3/uL (0-0.4); EOSINOPHILS % (AUTO) 4 % (1-7); LYMPHOCYTES # (AUTO) 0.96 x10^3/uL (1-3.4); LYMPHOCYTES % (AUTO) 15 % (22-44); MD NO; MEAN CORPUSCULAR HEMOGLOBIN 31.6 pg (27.0-34.8); MEAN CORPUSCULAR HGB CONC 32.8 g/dL (32.4-35.8); MEAN CORPUSCULAR VOLUME 96.3 fL (80-100); MONOCYTES # (AUTO) 0.56 x10^3/uL (0.2-0.8); MONOCYTES % (AUTO) 9 % (2-9); NEUTROPHILS # (AUTO) 4.49 x10^3/uL (1.8-6.8); NEUTROPHILS % (AUTO) 72 % (42-75); PLATELET COUNT 299 x10^3/uL (130-400); RED BLOOD COUNT 2.61 x10^6/uL (3.82-5.3); RED CELL DISTRIBUTION WIDTH 14.5 % (9.6-15.2)
[2019-03-25 08:27] LABS: ALBUMIN 2.5 g/dL (3.4-5.0); CHLORIDE 100 mmol/L (98-107)
[2019-03-25 08:40] LABS: ALANINE AMINOTRANSFERASE 42 U/L (12-78); ALKALINE PHOSPHATASE 143 U/L (45-117); ANION GAP 6 mmol/L (5-15); BILIRUBIN,TOTAL 0.4 mg/dL (0.2-1.0); CALCIUM 8.7 mg/dL (8.5-10.1); TOTAL PROTEIN 6.1 g/dL (6.4-8.2)
[2019-03-25 08:54] VITALS: BP 167/80
[2019-03-25] MEDS ORDERED: DARBEPOETIN 60 MCG/ML SQ SCH (09:30)
[2019-03-25] MEDS: LISINOPRIL 40 MG TABLET NG SCH (10:55)
[2019-03-25] MEDS: METOPROLOL TARTRATE 50 MG TABLET PO/NG SCH ×2 (10:56→21:36)
[2019-03-25] MEDS: AMLODIPINE 10 MG TAB PO/NG SCH (10:57)
[2019-03-25] MEDS: CLOPIDOGREL 75 MG TABLET PO/NG SCH (10:57)
[2019-03-25] MEDS: LEVOTHYROXINE 75 MCG TABLET PO/NG SCH (10:58)
[2019-03-25] MEDS: SODIUM CHLORIDE FLUSH 10ML SYR IVF SCH ×2 (10:58→21:00)
[2019-03-25] MEDS: INSULIN GLARGINE 100 UNITS/ML, PEN SQ-INSULIN SCH ×2 (10:59→21:37)
[2019-03-25 12:43] VITALS: BP 147/71
[2019-03-25 17:37] VITALS: BP 153/62
[2019-03-25 21:13] VITALS: BP 145/67
[2019-03-25] MEDS: ATORVASTATIN 80 MG TABLET PO/NG SCH (21:35)
[2019-03-26 00:35] VITALS: BP 142/72
[2019-03-26] MEDS: INSULIN LISPRO 100 UNITS/ML, PEN SQ-INSULIN SCH ×5 (03:00→22:31)
[2019-03-26 04:26] VITALS: BP 139/66
[2019-03-26 07:30] VITALS: BP 156/65
[2019-03-26] MEDS: SODIUM CHLORIDE FLUSH 10ML SYR IVF SCH ×2 (09:00→21:00)
[2019-03-26] MEDS: INSULIN GLARGINE 100 UNITS/ML, PEN SQ-INSULIN SCH ×2 (12:05→22:32)
[2019-03-26] MEDS: CLOPIDOGREL 75 MG TABLET PO/NG SCH (12:05)
[2019-03-26] MEDS: LEVOTHYROXINE 75 MCG TABLET PO/NG SCH (12:06)
[2019-03-26] MEDS: AMLODIPINE 10 MG TAB PO/NG SCH (12:06)
[2019-03-26] MEDS: LISINOPRIL 40 MG TABLET NG SCH (12:07)
[2019-03-26] MEDS: METOPROLOL TARTRATE 50 MG TABLET PO/NG SCH ×2 (12:07→22:30)
[2019-03-26 14:36] VITALS: BP 150/68
[2019-03-26 20:00] VITALS: BP 119/43
[2019-03-26] MEDS: ATORVASTATIN 80 MG TABLET PO/NG SCH (22:29)
[2019-03-27 01:00] VITALS: BP 101/43
[2019-03-27] MEDS: INSULIN LISPRO 100 UNITS/ML, PEN SQ-INSULIN SCH ×4 (03:17→21:00)
[2019-03-27] MEDS ORDERED: BISACODYL 10 MG SUPP ONE (06:44)
[2019-03-27] MEDS ORDERED: BISACODYL 10 MG SUPP PR ONE ×2 (07:00→09:00)
[2019-03-27 08:00] VITALS: BP 150/52
[2019-03-27] MEDS ORDERED: DEXTROSE 5% 1,000 ML IV SCH (09:00)
[2019-03-27] MEDS: SODIUM CHLORIDE FLUSH 10ML SYR IVF SCH ×2 (09:00→22:38)
[2019-03-27] MEDS: INSULIN GLARGINE 100 UNITS/ML, PEN SQ-INSULIN SCH ×2 (09:00→22:36)
[2019-03-27] MEDS: LEVOTHYROXINE 75 MCG TABLET PO/NG SCH (09:24)
[2019-03-27] MEDS: LISINOPRIL 40 MG TABLET NG SCH (09:25)
[2019-03-27] MEDS: AMLODIPINE 10 MG TAB PO/NG SCH (09:25)
[2019-03-27] MEDS: METOPROLOL TARTRATE 50 MG TABLET PO/NG SCH ×2 (09:25→21:00)
[2019-03-27] MEDS: CLOPIDOGREL 75 MG TABLET PO/NG SCH (09:26)
[2019-03-27] MEDS ORDERED: D5%-0.9% NACL 1,000 ML IV SCH (11:30)
[2019-03-27 12:36] LABS: ALBUMIN 2.4 g/dL (3.4-5.0); ANION GAP 5 mmol/L (5-15); CALCIUM 8.6 mg/dL (8.5-10.1); CHLORIDE 98 mmol/L (98-107); CREATININE 4.76 mg/dL (0.55-1.02)
[2019-03-27 12:39] LABS: ALANINE AMINOTRANSFERASE 79 U/L (12-78); ALKALINE PHOSPHATASE 133 U/L (45-117); BILIRUBIN,TOTAL 0.4 mg/dL (0.2-1.0); TOTAL PROTEIN 6.1 g/dL (6.4-8.2)
[2019-03-27 14:36] VITALS: BP 148/56
[2019-03-27] MEDS ORDERED: LIDOCAINE-MPF 1%, 5ML ONE (14:38)
[2019-03-27] MEDS ORDERED: NITROGLYCERIN 5 MG/ML, 10ML ONE (15:17)
[2019-03-27] MEDS ORDERED: MIDAZOLAM 1 MG/ML, 5ML ONE (15:17)
[2019-03-27] MEDS ORDERED: FLUMAZENIL 0.1 MG/1 ML, 5ML ONE (15:17)
[2019-03-27] MEDS ORDERED: FENTANYL PF 100 MCG/2ML ONE (15:17)
[2019-03-27] MEDS ORDERED: NALOXONE 1 MG/ML, 2ML ONE (15:18)
[2019-03-27] MEDS ORDERED: HEPARIN 1,000 UNITS/ML, 10ML ONE (15:18)
[2019-03-27] MEDS ORDERED: PROTAMINE SULFATE 10 MG/ML, 25ML ONE (15:18)
[2019-03-27] MEDS ORDERED: hydrALAzine 20 MG/ML, 1ML ONE (15:50)
[2019-03-27] MEDS ORDERED: VISIPAQUE 270 MG/ML, 50ML BOTTLE ONE (16:39)
[2019-03-27 19:15] VITALS: BP 169/75
[2019-03-27 22:32] VITALS: BP 157/70
[2019-03-27] MEDS: ATORVASTATIN 80 MG TABLET PO/NG SCH (22:37)
[2019-03-28 00:24] VITALS: BP 121/61
[2019-03-28] MEDS: INSULIN LISPRO 100 UNITS/ML, PEN SQ-INSULIN SCH ×4 (03:20→21:16)
[2019-03-28 06:00] LABS: CHLORIDE 100 mmol/L (98-107)
[2019-03-28 06:06] LABS: ALBUMIN 2.3 g/dL (3.4-5.0); ANION GAP 8 mmol/L (5-15); CALCIUM 8.5 mg/dL (8.5-10.1); CREATININE 5.44 mg/dL (0.55-1.02)
[2019-03-28 06:45] VITALS: BP 158/73
[2019-03-28] MEDS: INSULIN GLARGINE 100 UNITS/ML, PEN SQ-INSULIN SCH (07:27)
[2019-03-28] MEDS: SODIUM CHLORIDE FLUSH 10ML SYR IVF SCH ×2 (09:00→21:15)
[2019-03-28 12:35] VITALS: BP 193/65
[2019-03-28] MEDS: METOPROLOL TARTRATE 50 MG TABLET PO/NG SCH ×2 (12:56→21:17)
[2019-03-28] MEDS: CLOPIDOGREL 75 MG TABLET PO/NG SCH (12:57)
[2019-03-28] MEDS: LISINOPRIL 40 MG TABLET NG SCH (12:58)
[2019-03-28] MEDS: AMLODIPINE 10 MG TAB PO/NG SCH (12:58)
[2019-03-28] MEDS: LEVOTHYROXINE 75 MCG TABLET PO/NG SCH (13:10)
[2019-03-28] MEDS ORDERED: INSULIN GLARGINE 100 UNITS/ML, PEN SQ-INSULIN SCH (16:30)
[2019-03-28 20:42] VITALS: BP 184/73
[2019-03-28] MEDS: ATORVASTATIN 80 MG TABLET PO/NG SCH (21:18)
[2019-03-29 01:33] VITALS: BP 155/72
[2019-03-29] MEDS: INSULIN LISPRO 100 UNITS/ML, PEN SQ-INSULIN SCH ×2 (03:00→08:00)
[2019-03-29 07:46] LABS: ALBUMIN 2.5 g/dL (3.4-5.0); ANION GAP 5 mmol/L (5-15); CALCIUM 8.6 mg/dL (8.5-10.1); CHLORIDE 101 mmol/L (98-107); CREATININE 4.16 mg/dL (0.55-1.02)
[2019-03-29] MEDS ORDERED: LISI40TA PO (08:16)
[2019-03-29] MEDS ORDERED: CLOP75TA PO/NG (08:16)
[2019-03-29] MEDS ORDERED: ATOR-2 PO/NG (08:16)
[2019-03-29] MEDS ORDERED: DARB60VI SQ (08:16)
[2019-03-29] MEDS ORDERED: METO50TA82 PO/NG (08:16)
[2019-03-29 08:23] VITALS: BP 180/70
[2019-03-29] MEDS: METOPROLOL TARTRATE 50 MG TABLET PO/NG SCH (08:25)
[2019-03-29] MEDS: SODIUM CHLORIDE FLUSH 10ML SYR IVF SCH (08:25)
[2019-03-29] MEDS: CLOPIDOGREL 75 MG TABLET PO/NG SCH (08:26)
[2019-03-29] MEDS: LISINOPRIL 40 MG TABLET NG SCH (08:26)
[2019-03-29] MEDS: AMLODIPINE 10 MG TAB PO/NG SCH (08:26)
[2019-03-29] MEDS: LEVOTHYROXINE 75 MCG TABLET PO/NG SCH (08:27)
[2019-03-29] MEDS ORDERED: HEPA50002 SC (10:10)
== END 2019-03-29 12:08 | DRG 61 ==
LOC: ED 17:52 → EDIP 20:28 → ICU 21:20 → 4WST 03-18 23:54
PROVIDERS: ADMIT Internal Medicine; ATTEND Internal Medicine
PROC: 3E03317 Introduction of Other Thrombolytic into Peripheral Vein, Percutaneous Approach (ICD-10-PCS; 2019-03-17)
PROC: 05HY33Z Insertion of Infusion Device into Upper Vein, Percutaneous Approach (ICD-10-PCS; 2019-03-17)
PROC: B54NZZA Ultrasonography of Left Upper Extremity Veins, Guidance (ICD-10-PCS; 2019-03-17)
PROC: 5A1D70Z Performance of Urinary Filtration, Intermittent, Less than 6 Hours Per Day (ICD-10-PCS; 2019-03-17)
PROC: 5A1D70Z Performance of Urinary Filtration, Intermittent, Less than 6 Hours Per Day (ICD-10-PCS; 2019-03-19)
PROC: 5A1D70Z Performance of Urinary Filtration, Intermittent, Less than 6 Hours Per Day (ICD-10-PCS; 2019-03-21)
PROC: 5A1D70Z Performance of Urinary Filtration, Intermittent, Less than 6 Hours Per Day (ICD-10-PCS; 2019-03-24)
PROC: B51W1ZZ Fluoroscopy of Dialysis Shunt/Fistula using Low Osmolar Contrast (ICD-10-PCS; 2019-03-27)
PROC: B5161ZZ Fluoroscopy of Right Subclavian Vein using Low Osmolar Contrast (ICD-10-PCS; 2019-03-27)
PROC: B51M1ZZ Fluoroscopy of Right Upper Extremity Veins using Low Osmolar Contrast (ICD-10-PCS; 2019-03-27)
PROC: 5A1D70Z Performance of Urinary Filtration, Intermittent, Less than 6 Hours Per Day (ICD-10-PCS; principal; 2019-03-28)
DX: I63.512 Cerebral infarction due to unspecified occlusion or stenosis of left middle cerebral artery (principal); N18.6 End stage renal disease; J18.9 Pneumonia, unspecified organism; I69.354 Hemiplegia and hemiparesis following cerebral infarction affecting left non-dominant side; I12.0 Hypertensive chronic kidney disease with stage 5 chronic kidney disease or end stage renal disease; E44.1 Mild protein-calorie malnutrition; G46.0 Middle cerebral artery syndrome; G81.91 Hemiplegia, unspecified affecting right dominant side; I82.B11 Acute embolism and thrombosis of right subclavian vein; D63.1 Anemia in chronic kidney disease; E03.9 Hypothyroidism, unspecified; E11.22 Type 2 diabetes mellitus with diabetic chronic kidney disease; E11.649 Type 2 diabetes mellitus with hypoglycemia without coma; E78.5 Hyperlipidemia, unspecified; N25.0 Renal osteodystrophy; R13.10 Dysphagia, unspecified; R29.810 Facial weakness; R47.01 Aphasia; Z79.02 Long term (current) use of antithrombotics/antiplatelets; Z88.5 Allergy status to narcotic agent; Z79.899 Other long term (current) drug therapy; Z82.49 Family history of ischemic heart disease and other diseases of the circulatory system; Z99.2 Dependence on renal dialysis; Z83.3 Family history of diabetes mellitus; Z90.49 Acquired absence of other specified parts of digestive tract
CPT/HCPCS: 36415; 36573; 36901; 70450; 70496; 70498; 70551; 71045; 74018; 74230; 76937; 80047; 80048; 80053; 80061; 80069; 82947; 82962; 83735; 84100; 85014; 85018; 85025; 85610; 85730; 86705; 86706; 87081; 87340; 93005; 93306; 93990; 99291; 99292; C1894; G0378; J0881; J1644; J2250; J2720; J2997; J3010; J7042; Q9966; 92523-GN; C1751; J0360; J1815; J2310

== ENCOUNTER 2019-04-03 19:12 | Emergency (ER) | payer OTHER ==
[~2019-04-03] VITALS: Ht 157.5 cm; Wt 53.0 kg
[~2019-04-03 19:12] MED LIST changes: +ATOR-2 PO/NG; +CLOP75TA PO/NG; +DARB60VI SQ; +HEPA50002 SC; +METO50TA82 PO/NG
--- NOTE | 2019-04-03 19:25 | NUR ---
DR DAN TO CONTACT IR FOR DOBHOFF PLACEMENT
[2019-04-03] MEDS ORDERED: LIDOCAINE 2%, 6 ML JEL.PF.APP MM ONE (19:27)
[2019-04-03 19:29] LABS: BASOPHILS # (AUTO) 0.04 x10^3/uL (0-0.1); BASOPHILS % (AUTO) 0 % (0-1); EOSINOPHILS # (AUTO) 0.23 x10^3/uL (0-0.4); EOSINOPHILS % (AUTO) 2 % (1-7); LYMPHOCYTES # (AUTO) 1.19 x10^3/uL (1-3.4); LYMPHOCYTES % (AUTO) 12 % (22-44); MD NO; MEAN CORPUSCULAR HEMOGLOBIN 31.7 pg (27.0-34.8); MEAN CORPUSCULAR HGB CONC 32.6 g/dL (32.4-35.8); MEAN CORPUSCULAR VOLUME 97.1 fL (80-100); MEAN PLATELET VOLUME 8.3 fL (7.4-10.4); MONOCYTES # (AUTO) 1.01 x10^3/uL (0.2-0.8); MONOCYTES % (AUTO) 11 % (2-9); NEUTROPHILS # (AUTO) 7.19 x10^3/uL (1.8-6.8); NEUTROPHILS % (AUTO) 75 % (42-75); PLATELET COUNT 486 x10^3/uL (130-400); RED BLOOD COUNT 2.63 x10^6/uL (3.82-5.3)
[2019-04-03 19:40] LABS: ALBUMIN 2.9 g/dL (3.4-5.0); ANION GAP 13 mmol/L (5-15); CHLORIDE 97 mmol/L (98-107); CREATININE 4.22 mg/dL (0.55-1.02)
--- NOTE | 2019-04-03 19:54 | NUR ---
PT TO IR
[2019-04-03 20:31] VITALS: BP 167/66
[2019-04-03] MEDS ORDERED: OMNIPAQUE 350 MG/ML, 50 ML BOTTLE ONE (20:46)
--- NOTE | 2019-04-03 20:52 | NUR ---
PT TO RETURN TO [facility], TRANSPORT BEING ARRANGED BY THROUGHPUT RN
== END 2019-04-03 21:54 | disposition short-term general hospital (02) ==
LOC: ED 19:23
DX: R13.12 Dysphagia, oropharyngeal phase (principal); Z86.73 Personal history of transient ischemic attack (TIA), and cerebral infarction without residual deficits; E03.9 Hypothyroidism, unspecified; E11.22 Type 2 diabetes mellitus with diabetic chronic kidney disease; I12.0 Hypertensive chronic kidney disease with stage 5 chronic kidney disease or end stage renal disease; N18.6 End stage renal disease
CPT/HCPCS: 36415; 71045; 74340; 80048; 82040; 85025; 99285; Q9967

== ENCOUNTER 2019-04-04 20:05 | Emergency (ER) | payer OTHER ==
[~2019-04-04] VITALS: Ht 157.5 cm; Wt 53.0 kg
--- NOTE | 2019-04-04 20:16 | NUR ---
TSERING. REPORT RECEIVED FROM EMS. NG PULLED OUT AT [facility] TODAY. WANTS TO BACK IN. PT IS NON-VARBAL D/T CVA. PT UNDERSTANDS ONLY LATVIAN. PT HAS RIGHT SIDE WEAKNESS D/T CVA WELL. PT'S AT BEDISDE. BP/SPO2 MONITORS IN PLACE. CALL LIGHT WITHIN REACH. EDMD AT BEDSIDE TO EVALUATE AT THIS TIME.
[2019-04-04] MEDS ORDERED: MIDAZOLAM 1 MG/ML, 2ML ONE (20:50)
[2019-04-04] MEDS ORDERED: MIDAZOLAM 10MG/2 ML NAS ONE (21:00)
--- NOTE | 2019-04-04 21:18 | NUR ---
Assisted in pt care. Pt not tolerating Dobhoff placement. Discussed with ERP and order for Versed received. Pt medicated per DEC. Dobhoff placed to Yanet sierra. ERP aware. Awaiting xray confirmation.
--- NOTE | 2019-04-04 22:16 | NUR ---
PT SLEEPING IN [facility]. RESPS EVEN AND UNLABORED. BP/SPO2 MONITORS IN PLACE. CALL LIGHT WITHIN REACH.
--- NOTE | 2019-04-04 22:50 | NUR ---
Dobhoff placed to Elías sierra by kilo sarah. ERP aware. Awaiting xray confirmation.
[2019-04-05 00:59] VITALS: BP 182/87
--- NOTE | 2019-04-05 01:20 | NUR ---
PT RESTING IN [place]. RESPS EVEN AND UNLABORED. BP/SPO2 MONITORS IN PLACE. CALL LIGHT WITHIN REACH. PT'S AT BEDSIDE.
--- NOTE | 2019-04-05 02:04 | NUR ---
PT'S GIVEN DC INSTRUCTIONS. PT STILL SLEEPING IN [facility]. RESPS EVEN AND UNLABORED. PT NEEDS TRANSPORTATION TO GO BACK TO HER FACILITY. AWAITING EMS.
--- NOTE | 2019-04-05 02:11 | NUR ---
REPORT GIVEN TO LEON ALBARRAN AT [facility].
--- NOTE | 2019-04-05 02:22 | NUR ---
Transport setup for patient to go back to [facility] in [place]. Accepting Dr. Cormier. Accepting DEION Triana. Patient with [employer] Medicare advantage so no MTM required. [facility] ETA [id number].
== END 2019-04-05 02:57 | disposition home or self-care (01) ==
LOC: ED 21:18
DX: K94.23 Gastrostomy malfunction (principal); E03.9 Hypothyroidism, unspecified; E78.5 Hyperlipidemia, unspecified; E11.22 Type 2 diabetes mellitus with diabetic chronic kidney disease; I12.0 Hypertensive chronic kidney disease with stage 5 chronic kidney disease or end stage renal disease; N18.6 End stage renal disease; Z99.2 Dependence on renal dialysis
CPT/HCPCS: 74018; 99284

== ENCOUNTER 2019-04-05 08:57 | Emergency (ER) | payer OTHER ==
[~2019-04-05] VITALS: Ht 152.4 cm; Wt 60.8 kg
--- NOTE | 2019-04-05 09:14 | NUR ---
PT BIB BY EMS FROM [facility] TO RECIEVE NEW NG TUBE BECAUSE PT HAS PULLED OUT NG TUBE 3 TIMES ACCORDING TO EMS. PT HAS R ARM FISTULA. PT IS APHASIC. RIGHT ARM IS HAS 2+ EDEMA. NOT USING FROM STICKS OR BLOOD PRESSURES. PT APPEARS TO BE COMFORTABLE AND NO VISIBLE DISTRESS. VS STABLE. WILL CALL [facility] FOR AN UPDATE ON PATIENT.
--- NOTE | 2019-04-05 10:01 | NUR ---
NG 16 RUSSIAN INSERTED INTO RIGHT NARE. PT TOLERATED PLACEMENT.
--- NOTE | 2019-04-05 10:06 | NUR ---
NG TUBE SECURED BY NOSE PADILLA AND TAPE. ORAL CARE COMPLETED.
--- NOTE | 2019-04-05 12:07 | NUR ---
report give to Shelby sarah at [facility]. Junior to roller picker patient for transfer at 1245. pt stable for transfer
[2019-04-05 12:21] VITALS: BP 170/74
--- NOTE | 2019-04-05 13:20 | NUR ---
PT DC VIA [facility] TO [facility]
== END 2019-04-05 13:24 | disposition short-term general hospital (02) ==
LOC: ED 11:01
DX: K94.23 Gastrostomy malfunction (principal); I10 Essential (primary) hypertension; E11.9 Type 2 diabetes mellitus without complications; E03.9 Hypothyroidism, unspecified; Z86.73 Personal history of transient ischemic attack (TIA), and cerebral infarction without residual deficits
CPT/HCPCS: 74018; 99285

== ENCOUNTER 2019-05-07 10:10 | Emergency (ER) | payer OTHER ==
[~2019-05-07] VITALS: Ht 152.4 cm; Wt 51.0 kg
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
--- NOTE | 2019-05-07 10:55 | NUR ---
PT CURRENTLY REFUSING ASSESSMENT. REFUSING TO SIT UP IN WHEELCHAIR. PT'S DAUGHTER AT BEDSIDE. PT SITTING IN WHEELCHAIR IN LOCKED POSITION. PT CONNECTED TO MONITOR. NADN. CHEN.
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
--- NOTE | 2019-05-07 11:26 | NUR ---
PT NOW RESTING ON GURNEY. PT'S NOW AT BEDSIDE. WILL INFORM MD. PT'S VSS. CATY.
--- NOTE | 2019-05-07 11:58 | NUR ---
PT RESTING ON GURNEY. FAMILY AT BEDSIDE. NADN. CHEN. CALL LIGHT IN REACH.
--- NOTE | 2019-05-07 12:14 | NUR ---
THIS RN LET MD KNOW PT'S STATES PT VOIDS 2X/WEEK. MD ASKED A BLADDER SCAN BE PERFORMED AND IF THERE IS URINE PRESENT TO STRAIGHT CATH, IF NOT TO NOT GET A UA.
--- NOTE | 2019-05-07 12:19 | NUR ---
LAB AT BEDSIDE.
--- NOTE | 2019-05-07 12:32 | NUR ---
BLADDER SCAN REVEALED 40CC. WILL NOTIFY
[2019-05-07 12:37] LABS: BASOPHILS # (AUTO) 0.02 x10^3/uL (0-0.1); BASOPHILS % (AUTO) 0 % (0-1); EOSINOPHILS # (AUTO) 0.09 x10^3/uL (0-0.4); EOSINOPHILS % (AUTO) 1 % (1-7); LYMPHOCYTES # (AUTO) 0.82 x10^3/uL (1-3.4); LYMPHOCYTES % (AUTO) 11 % (22-44); MD NO; MEAN CORPUSCULAR HEMOGLOBIN 30.8 pg (27.0-34.8); MEAN CORPUSCULAR HGB CONC 32.3 g/dL (32.4-35.8); MEAN CORPUSCULAR VOLUME 95.4 fL (80-100); MEAN PLATELET VOLUME 8.2 fL (7.4-10.4); MONOCYTES # (AUTO) 0.58 x10^3/uL (0.2-0.8); MONOCYTES % (AUTO) 8 % (2-9); NEUTROPHILS # (AUTO) 6.09 x10^3/uL (1.8-6.8); NEUTROPHILS % (AUTO) 80 % (42-75); PLATELET COUNT 346 x10^3/uL (130-400); RED BLOOD COUNT 3.02 x10^6/uL (3.82-5.3); RED CELL DISTRIBUTION WIDTH 15.5 % (9.6-15.2)
[2019-05-07 12:50] LABS: ALANINE AMINOTRANSFERASE 22 U/L (12-78); ALBUMIN 3.2 g/dL (3.4-5.0); ANION GAP 9 mmol/L (5-15); CHLORIDE 98 mmol/L (98-107); CREATININE 4.85 mg/dL (0.55-1.02)
[2019-05-07 12:52] LABS: ALKALINE PHOSPHATASE 127 U/L (45-117); BILIRUBIN,TOTAL 0.7 mg/dL (0.2-1.0); TOTAL PROTEIN 7.4 g/dL (6.4-8.2)
[2019-05-07 13:41] VITALS: BP 157/65
--- NOTE | 2019-05-07 13:42 | NUR ---
PT RESTING ON GURNEY. AG VSS. PT AND FAMILY AWARE OF POC FOR ADMIT.
[2019-05-07 13:55] LABS: MICROSCOPIC INDICATED
[2019-05-07 14:10] LABS: CULTURE INDICATED? NO
--- NOTE | 2019-05-07 14:15 | NUR ---
REPORT GIVEN TO DEION COOMBS.
--- NOTE | 2019-05-07 14:15 | NUR ---
received report from Camila. pt laying on gurney awake & calm, will not verbally answer family when asked questions, no needs at this time, family at BS, call light within reach.
--- NOTE | 2019-05-07 14:50 | NUR ---
Patient & Caregivers given discharge instructions and they have confirmed that they understand the instructions. Patient to DC desk via personal WC.
== END 2019-05-07 15:11 | disposition home or self-care (01) ==
LOC: ED 12:44 → EDIP 13:22 → UNDOADMIN 13:22 → EDIP 14:25 → 3NW 14:25 → ED 15:11
DX: I69.391 Dysphagia following cerebral infarction (principal); R60.0 Localized edema; E03.9 Hypothyroidism, unspecified; F32.9 Major depressive disorder, single episode, unspecified; Z72.9 Problem related to lifestyle, unspecified; E11.9 Type 2 diabetes mellitus without complications; I10 Essential (primary) hypertension
CPT/HCPCS: 36415; 71045; 80053; 81001; 85025; 93005; 99283; 99284